=== PATIENT | female | born 1955 | race Caucasian/White ===

== ENCOUNTER 2018-01-13 01:33 | Inpatient (IN) ==
[2018-01-13] MEDS ORDERED: MAGNESIUM SULF RIDER 4 GM in PREMIX 1 EACH IV PRN (02:38)
[2018-01-13] MEDS ORDERED: MAGNESIUM SULF RIDER 2 GM in PREMIX 1 EACH IV PRN (02:38)
[2018-01-13 03:52] LABS: Alanine Aminotransferase 12 U/L (13-56); Albumin 3.2 G/DL (3.4-5.0); Alkaline Phosphatase 66 U/L (45-117); Aspartate Amino Transferase 14 U/L (0-37); Bilirubin,Total < 0.39 MG/DL (0.2-1.0); Blood Urea Nitrogen 14 MG/DL (7-18); Calcium 8.6 MG/DL (8.5-10.1); Glucose 178 MG/DL (74-106); Osmolality,Calculated 283.4 MOS/KG (273-304); Potassium 3.9 MMOL/L (3.5-5.1); Sodium 140 MMOL/L (136-145); Total Protein 6.4 G/DL (6.4-8.3)
[2018-01-13] MEDS ORDERED: DEXTROSE 50% 25 GM/50 ML VIAL IV PRN (07:00)
[2018-01-13] MEDS ORDERED: GLUCAGON 1 MG VIAL IM PRN (07:00)
[2018-01-13] MEDS ORDERED: methylPREDNISolone SOD SUC 125 MG/2 ML VIAL IV ONE (07:00)
[2018-01-13] MEDS: GABAPENTIN 600 MG TABLET PO SCH ×4 (07:24→23:08)
[2018-01-13] MEDS: metFORMIN 500 MG TABLET PO SCH ×2 (07:24→16:42)
[2018-01-13] MEDS: INSULIN REGULAR 100 UNIT/ML SUBCUT SCH ×4 (08:14→21:57)
[2018-01-13 08:39] LABS: Risk Ratio 2.7; VLDL CHOLESTEROL 23.8 MG/DL
[2018-01-13] MEDS ORDERED: HYDROcodone/CHLORPHENIRAMINE ER 5 ML UDCUP PO PRN (09:00)
[2018-01-13] MEDS: buPROPion XL 150 MG TABLET PO SCH (09:28)
[2018-01-13] MEDS: LEVOTHYROXINE 137 MCG TABLET PO SCH (09:28)
[2018-01-13] MEDS: ATORVASTATIN 40 MG TABLET PO SCH (09:29)
[2018-01-13] MEDS: AZITHROMYCIN 250 MG TABLET PO SCH (09:29)
[2018-01-13] MEDS: LITHIUM 300 MG CAPSULE PO SCH ×2 (09:29→23:08)
[2018-01-13] MEDS: CARVEDILOL 3.125 MG TABLET PO SCH ×2 (09:29→21:58)
[2018-01-13] MEDS: LISINOPRIL 20 MG TABLET PO SCH (09:29)
[2018-01-13] MEDS: ASPIRIN EC 81 MG TABLET PO SCH (09:29)
[2018-01-13] MEDS: ZALEPLON 5 MG CAPSULE PO SCH (21:58)
[2018-01-14] MEDS: ALBUTEROL 0.63 MG/3 ML NEB RESP TX PRN ×2 (01:39→07:46)
[2018-01-14 05:22] LABS: Basophils % 0.2 % (0.0-0.8); Hematocrit 40.8 VOL% (35.7-47.0); Hemoglobin 13.2 GM/DL (12.0-16.0); Immature Granulocytes % 0.7 %; Immature Granulocytes Absolute 0.09 #; Lymphocytes # 1.3 10*3/uL (1.4-4.0); Mean Corpuscular HGB Conc 32.4 GM/DL (32-36); Mean Corpuscular Hemoglobin 29 PG (27-34); Mean Corpuscular Volume 88.7 FL (87-102); Mean Platelet Volume 11.3 FL (9.6-12.0); Monocytes # 0.7 10*3/uL (0.11-0.8); Monocytes % 5.6 % (1.7-12.7); Neutrophils # 10.5 10*3/uL (1.4-7.4); Neutrophils % 83.5 % (38.7-73.9); Platelet Count 288 T/CUMM (130-400); Red Cell Distribution Width 13.9 % (9.3-17.3); White Blood Count 12.6 T/CUMM (4-12)
[2018-01-14] MEDS: GABAPENTIN 600 MG TABLET PO SCH ×3 (05:29→17:59)
[2018-01-14] MEDS: BENZONATATE 100 MG CAPSULE PO PRN ×3 (05:31→20:55)
[2018-01-14 05:52] LABS: Calcium 8.4 MG/DL (8.5-10.1); Osmolality,Calculated 283.4 MOS/KG (273-304); Potassium 3.9 MMOL/L (3.5-5.1)
[2018-01-14] MEDS: INSULIN REGULAR 100 UNIT/ML SUBCUT SCH ×4 (07:54→20:54)
[2018-01-14] MEDS: LISINOPRIL 20 MG TABLET PO SCH (09:07)
[2018-01-14] MEDS: CARVEDILOL 3.125 MG TABLET PO SCH ×2 (09:07→20:54)
[2018-01-14] MEDS: LEVOTHYROXINE 137 MCG TABLET PO SCH (09:07)
[2018-01-14] MEDS: ATORVASTATIN 40 MG TABLET PO SCH (09:07)
[2018-01-14] MEDS: AZITHROMYCIN 250 MG TABLET PO SCH (09:07)
[2018-01-14] MEDS: metFORMIN 500 MG TABLET PO SCH ×2 (09:07→16:43)
[2018-01-14] MEDS: ASPIRIN EC 81 MG TABLET PO SCH (09:07)
[2018-01-14] MEDS: LITHIUM 300 MG CAPSULE PO SCH ×2 (09:08→20:54)
[2018-01-14] MEDS: buPROPion XL 150 MG TABLET PO SCH (09:15)
[2018-01-14] MEDS: methylPREDNISolone SOD SUC 125 MG/2 ML VIAL IV SCH (12:54)
[2018-01-14] MEDS: ZALEPLON 5 MG CAPSULE PO SCH (20:54)
[2018-01-15] MEDS: GABAPENTIN 600 MG TABLET PO SCH ×3 (00:03→12:10)
[2018-01-15] MEDS: methylPREDNISolone SOD SUC 125 MG/2 ML VIAL IV SCH ×2 (00:03→12:11)
[2018-01-15] MEDS: LISINOPRIL 20 MG TABLET PO SCH (09:28)
[2018-01-15] MEDS: ASPIRIN EC 81 MG TABLET PO SCH (09:28)
[2018-01-15] MEDS: LEVOTHYROXINE 137 MCG TABLET PO SCH (09:28)
[2018-01-15] MEDS: CARVEDILOL 3.125 MG TABLET PO SCH (09:28)
[2018-01-15] MEDS: buPROPion XL 150 MG TABLET PO SCH (09:29)
[2018-01-15] MEDS: metFORMIN 500 MG TABLET PO SCH (09:29)
[2018-01-15] MEDS: AZITHROMYCIN 250 MG TABLET PO SCH (09:29)
[2018-01-15] MEDS: ATORVASTATIN 40 MG TABLET PO SCH (09:29)
[2018-01-15] MEDS: LITHIUM 300 MG CAPSULE PO SCH (09:31)
[2018-01-15] MEDS: INSULIN REGULAR 100 UNIT/ML SUBCUT SCH ×2 (11:20→12:02)
[2018-01-15] MEDS: BENZONATATE 100 MG CAPSULE PO PRN (12:10)
[2018-01-15 17:23] VITALS: BP 157/70
== END 2018-01-15 16:35 | disposition home or self-care (01) | DRG 202 ==
LOC: EDUNIT# → EDBD → N.ED 01:33 → N.EDINP 02:38 → N.ICU 03:01 → N.TELEN 08:06
PROVIDERS: ADMIT Internal Medicine Cardiovascular Disease; ATTEND Internal Medicine Cardiovascular Disease